=== PATIENT | male | born 2005 | race Caucasian/White ===

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

== ENCOUNTER 2023-07-26 13:19 | Emergency (ER) | payer BC, SELFPAY ==
[2023-07-26 13:50] VITALS: BP 142/98; PULSE 132; RESP 23; TEMP 36.7; O2SAT 93; BMI 36.6
[2023-07-26] MEDS: ALBUTEROL 0.083% 2.5 MG/3 ML NEB IH (14:03)
--- NOTE | 2023-07-26 14:24 | EXP.UTC ---
Discharge Plan Disposition Patient Disposition: Home, Self-Care Condition: Good Prescriptions Prescriptions: New prednisone 20 mg tablet 20 mg PO BID Qty: 10 0RF albuterol sulfate 90 mcg/actuation HFA aerosol inhaler 1 inh inhalation QID PRN (Reason: shortness of breath or wheezing) Qty: 6.7 0RF No Action ergocalciferol (vitamin D2) 1,250 mcg (50,000 unit) capsule 50,000 unit PO QWEEK 90 Days Qty: 12 0RF cholecalciferol (vitamin D3) 25 mcg (1,000 unit) capsule 1,000 unit PO DAILY Qty: 90 1RF azithromycin 250 mg tablet See Rx Instructions .ROUTE .COMPLEX Patient Comments: TAKE 2 TABLETS BY MOUTH ON DAY 1, AND THEN TAKE 1 TABLET BY MOUTH ONCE A DAY ON DAY 2 THROUGH DAY 5 Rx Instructions: TAKE 2 TABLETS BY MOUTH ON DAY 1, AND THEN TAKE 1 TABLET BY MOUTH ONCE A DAY ON DAY 2 THROUGH DAY 5 Referrals Follow up/Referrals: Gary Doshi MD [Primary Care Provider] - See instructions Activity Restrictions/Add. Instructions Additional Instructions/Restrictions: Tylenol and ibuprofen as needed for pain or fever Humidifier/vaporizer/hot steamy shower Follow-up with primary care tomorrow. Follow-up immediately in the ER of the [facility] for new or worsening symptoms or no noticeable improvement over the next 48-72 hours. Stop smoking Inhaler every 4-6 hours as needed. Should help open airways improved cough, wheezing, shortness of breath Start steroids today. Helps with inflammation therefore coughing and wheezing. Follow directions on package. Clinical Impressions Clinical Impression: Bronchitis Instructions Patient Instructions: Acute Bronchitis Discharge ED Provider: Norm ([facility] HPI General Stated complaint: soa congestion weakness Mode of Arrival: Ambulatory Source of Information: Patient Limitations: No Limitations Time Seen by Provider: 07/26/23 14:24 Description of Symptoms (Recalled from Triage Doc. by RN): Pt's symptoms are coughing, nausea, and SOB (93RA). He has an infection that doctor akil is currently treating. Pt has hx of asthma. HEENT Symptoms (Recalled from RN notes): No Resp Symptoms (Recalled from RN notes): Yes Skin Symptoms (Recalled from RN notes): No MS Symptoms (Recalled from RN notes): No Functional Status (Recalled from RN notes): n/a History of Present Illness Provider Complaint: 18 yr old male presents for c/o coughing, nausea, and SOB (93RA). He has an lung infection that doctor akil is currently treating. Pt has hx of asthma. Related Data Home Medications Medication Instructions Recorded Confirmed azithromycin 250 mg tablet See Rx Instructions .Route .COMPLEX 07/26/23 Previous Rx's Medication Instructions Recorded cholecalciferol (vitamin D3) 25 1,000 unit PO DAILY #90 caps 06/24/21 mcg (1,000 unit) capsule ergocalciferol (vitamin D2) 1,250 50,000 unit PO QWEEK 90 days #12 06/24/21 mcg (50,000 unit) capsule caps albuterol sulfate 90 mcg/actuation 1 inh inhalation QID PRN shortness 07/26/23 aerosol inhaler of breath or wheezing #6.7 grams prednisone 20 mg tablet 20 mg PO BID #10 tabs 07/26/23 Allergies Allergy/AdvReac Type Severity Reaction Status Date / Time INGREDIENT: NO KNOWN - NO Allergy Unknown Uncoded 07/26/23 13:59 KNOWN DRUG ALLERGY Worker's Comp Is this a Worker's Comp case?: No [facility] Disclaimer: The information contained in this section may have been updated after the patient was seen, as this information can be updated by other users. 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: Never smoker alcohol intake: never substance use type: denies use current occupational status: unemployed Travel in the last 8 weeks: None ROS Obtained: Yes All systems reviewed & no additional complaints except as documented Constitutional Constitutional: Reports system reviewed and no additional complaints, except as documented and Reports as per HPI Eyes Eyes: Reports system reviewed and no additional complaints, except as documented ENT Ears, Nose, Mouth, and Throat: Reports system reviewed and no additional complaints, except as documented Cardiovascular Cardiovascular: Reports system reviewed and no additional complaints, except as documented, Reports dyspnea and Reports dyspnea on exertion Respiratory Respiratory: Reports system reviewed and no additional complaints, except as documented, Reports as per HPI, Reports shortness of breath, Reports cough, Reports dyspnea, Reports dyspnea on exertion and Reports wheezing Gastrointestinal Gastrointestingal: Reports system reviewed and no additional complaints, except as documented Musculoskeletal Musculoskeletal: Reports system reviewed and no additional complaints, except as documented Integumentary/Breasts Skin/Breast: Reports system reviewed and no additional complaints, except as documented Neurologic Neurologic: Reports system reviewed and no additional complaints, except as documented Endocrine Endocrine: Reports system reviewed and no additional complaints, except as documented Hematologic/Lymphatic Henatologic/Lymphatic: Reports system reviewed and no additional complaints, except as documented Allergic/Immunologic Allergic/Immunologic: Reports system reviewed and no additional complaints, except as documented and Reports wheezing Physical Exam General General appearance: alert and in no apparent distress Head Head exam: atraumatic Eye Eye exam: Present normal appearance and PERRL ENT ENT exam: Present normal exam, normal oropharynx, mucous membranes moist and TM's normal bilaterally Respiratory Respiratory exam: Present wheezes Expanded Respiratory Exam Location: Left: wheezes (wheeze thoughout), Right: wheezes (wheeze thoughout), Upper: wheezes (wheeze thoughout) and Lower: wheezes (wheeze thoughout) Cardiovascular Cardiovascular exam: Present regular rate and normal rhythm Neurological Exam Neurological exam: Present alert and oriented X3 Skin Skin exam: Present warm and intact Medical Decision Making Medical Records Medical records reviewed: Yes I reviewed the patient's medical records. Alexander Inquiry Pt receiving controlled substance: No Alexander was queried for this patient: No Vital Signs: 07/26/23 13:50 Temperature 98.1 F Temperature Source Oral Pulse Rate [Right Radial] 132 H Respiratory Rate 23 Blood Pressure [Right Arm] 142/98 H Blood Pressure Mean [Right Arm] 112 Blood Pressure Source [Right Arm] Automatic Cuff Blood Pressure Position [Right Arm] Sitting 02 Sat by Pulse Oximetry 93 L Oxygen Delivery Method Room Air Orders (Tests/Meds): ED MEDICATIONS Generic Name Dose Route Start Last Admin Trade Name Freq PRN Reason Stop Dose Admin Albuterol Sulfate 2.5 mg 07/26/23 14:01 07/26/23 14:03 Albuterol 0.083% 2.5 Mg/3 Ml Neb IH 07/26/23 14:02 2.5 mg ONCE ONE Administration
[2023-07-26 15:12] VITALS: BP 142/98; PULSE 132; RESP 18; TEMP 36.7; O2SAT 98
== END 2023-07-26 15:00 | disposition home or self-care (01) ==
PROVIDERS: Emergency Provider Nurse Practitioner Family; PCP Family Medicine
DX: J20.9 Acute bronchitis, unspecified (principal); R06.02 Shortness of breath; R11.0 Nausea; R05.9 Cough, unspecified
CPT/HCPCS: 99204; 99212; G0463

== ENCOUNTER 2023-12-05 15:29 | Emergency (ER) | payer BC, SELFPAY ==
[2023-12-05 16:00] VITALS: BP 125/99; BP 154/86; PULSE 131; PULSE 132; RESP 15; RESP 26; TEMP 37; TEMP 37.2; O2SAT 92; O2SAT 93; BMI 32.9; BMI 33.0
--- NOTE | 2023-12-05 16:08 | XR_ITS ---
PROCEDURE INFORMATION: Exam: XR Chest Exam date and time: 12/05/2023 4:12 PM Age: 18 years old Clinical indication: Shortness of breath; Additional info: SOA, asthma, congestion TECHNIQUE: Imaging protocol: Radiologic exam of the chest. Views: 2 views. Total images: 4 COMPARISON: No relevant prior studies available. FINDINGS: Lungs: Bilateral hyperinflation is present. No focal pneumonia. Atelectatic changes noted within both lung bases. Pleural spaces: No pleural effusions. Heart/Mediastinum: The heart is not enlarged. Bones/joints: Unremarkable. IMPRESSION: 1. Bilateral hyperinflation is present. 2. No focal pneumonia. 3. Atelectatic changes noted within both lung bases.
--- NOTE | 2023-12-05 16:22 | ED_ITS ---
Discharge Plan Disposition Patient Disposition: Still a Patient Prescriptions Prescriptions: No Action albuterol sulfate 90 mcg/actuation HFA aerosol inhaler 1 inh inhalation QID PRN (Reason: shortness of breath or wheezing) Qty: 6.7 0RF Referrals Follow up/Referrals: Gary Doshi MD [Primary Care Provider] - See instructions Print Language Print Language: Kinyarwanda Discharge ED [facility]ai [facility] HPI General Stated complaint: SOA,congestion,loss of appitite Mode of Arrival: Ambulatory Source of Information: Patient Limitations: No Limitations Time Seen by Provider: 12/05/23 16:22 Description of Symptoms (Recalled from Triage Doc. by RN): PATIENT C/O EXCESSIVE MUCOUS BUILD-UP, SOA, AND LOSS OF APPTETIE X 3-4 DAYS HEENT Symptoms (Recalled from RN notes): No Resp Symptoms (Recalled from RN notes): Yes Skin Symptoms (Recalled from RN notes): No MS Symptoms (Recalled from RN notes): No Functional Status (Recalled from RN notes): WNL History of Present Illness Provider Complaint: 18-year-old male presents with complaints of shortness of air wheezing excessive mucus buildup and loss of appetite for 3 to 4 days. Patient states he used his albuterol prior to coming up here and it did not give any relief Related Data Previous Rx's ?Medication ?Instructions ?Recorded albuterol sulfate 90 mcg/actuation 1 inh inhalation QID PRN shortness 07/26/23 aerosol inhaler of breath or wheezing #6.7 grams Allergies Allergy/AdvReac Type Severity Reaction Status Date / Time No Known Allergies Allergy Unverified 09/11/23 09:45 Worker's Comp Is this a Worker's Comp case?: No [facility] Disclaimer: The information contained in this section may have been updated after the patient was seen, as this information can be updated by other users. 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) Smoking Status: Never smoker alcohol intake: never substance use type: denies use current occupational status: unemployed Travel in the last 8 weeks: None ROS Obtained: Yes Systems reviewed as appropriate & no additional complaints except as documented Physical Exam General General appearance: alert and in distress Head Head exam: atraumatic Eye Eye exam: Present normal appearance and PERRL ENT ENT exam: Present normal exam Respiratory Respiratory exam: Present wheezes Expanded Respiratory Exam Location: Left: wheezes, Right: wheezes, Upper: wheezes and Lower: wheezes Cardiovascular Cardiovascular exam: Present regular rate and normal rhythm Neurological Exam Neurological exam: Present alert and oriented X3 Skin Skin exam: Present warm and other (Diaphoretic) Medical Decision Making Medical Records Medical records reviewed: Yes I reviewed the patient's medical records. Alexander Inquiry Pt receiving controlled substance: No Alexander was queried for this patient: No Vital Signs: 12/05/23 16:00 Temperature 98.6 F Temperature Source Oral Pulse Rate [Left Brachial] 131 H Respiratory Rate 26 H Blood Pressure [Left Arm] 154/86 H Blood Pressure Mean [Left Arm] 108 Blood Pressure Source [Left Arm] Automatic Cuff Blood Pressure Position [Left Arm] Sitting 02 Sat by Pulse Oximetry 92 L Oxygen Delivery Method Room Air Orders (Tests/Meds): ORDERS Category Date Time Status Chest XR 2 view (NOT portable) [XR chest 2V] Stat Exams 12/05/23 16:08 Ordered Medical Decision Narrative: Patient went for an x-ray upon coming back went into see the patient he was diaphoretic and mouth breathing respiratory rate was 36. Called the ER given report to Minal GOSS will send to the ER for evaluation
--- NOTE | 2023-12-05 16:41 | PC.NURSE ---
PATIENT SENT TO ER PER Minda VIERA APRN FOR FURTHER EVALUATION. REPORT GIVEN TO OTIS (MIDLEVEL) BY Minda VIERA APRN. PATIENT TRANSPORTED TO ER VIA WHEELCHAIR WITH [facility] STAFF ASSIST AT THIS TIME
--- NOTE | 2023-12-05 16:44 | ECG_ITS ---
APPROVED REPORT Exam: Resting ECG HR:129 bpm ECG Measurements Heart Rate 129 AXES NE 161 P 85 QRSd 89 QRS 78 QT 302 T 63 QTc 378 Conclusion SINUS TACHYCARDIA ABNORMAL RHYTHM ECG UNCONFIRMED REPORT Electronically signed by : Marco Antonio Estrada, 12/05/2023 23:09:49
--- NOTE | 2023-12-05 16:56 | CT_ITS ---
PROCEDURE INFORMATION: Exam: CTA Chest With Contrast Exam date and time: 12/05/2023 5:30 PM Age: 18 years old Clinical indication: Dyspnea; Additional info: Dyspnea, tachycardia TECHNIQUE: Imaging protocol: Computed tomographic angiography of the chest with contrast. Exam focused on the arteries. 3D rendering (Not supervised by radiologist): MIP and/or 3D reconstructed images were created by the technologist. Total images: 986 Radiation optimization: All CT scans at this facility use at least one of these dose optimization techniques: automated exposure control; mA and/or kV adjustment per patient size (includes targeted exams where dose is matched to clinical indication); or iterative reconstruction. Contrast material: ISO 370; Contrast volume: 80 ml; Contrast route: INTRAVENOUS (IV); COMPARISON: CR XR CHEST 2V 12/05/2023 4:12 PM FINDINGS: Pulmonary arteries: Normal. No pulmonary emboli. Aorta: Unremarkable. No aortic aneurysm. No aortic dissection. Lungs: Diffuse patchy airspace opacities consistent with developing pneumonia present within the upper lobes bilaterally and lower lobes. 9 mm nodule present within the left lung base. Bilateral hyperinflation is present. Pleural spaces: Unremarkable. No pneumothorax. No pleural effusion. Heart: Unremarkable. No cardiomegaly. No pericardial effusion. Lymph nodes: Unremarkable. No enlarged lymph nodes. Bones/joints: Unremarkable. No acute fracture. Soft tissues: Unremarkable. IMPRESSION: 1. Diffuse patchy airspace opacities consistent with developing pneumonia present within the upper lobes bilaterally and lower lobes. 2. 9 mm nodule present within the left lung base. For both low risk and high risk patients, consider CT Chest at 3 months, PET/CT, or biopsy. (Reference: Cheo) 3. Bilateral hyperinflation is present. REFERENCES: Cheo Thurston et al. Guidelines for Management of Incidental Pulmonary Nodules Detected on CT Images: From the Fleischner Society 2017. Radiology. 2017;284(1):228-243.
[2023-12-05 17:00] VITALS: BP 140/95; PULSE 127; RESP 14; O2SAT 91
[2023-12-05] MEDS: 0.9 % SODIUM CHLORIDE 1000ML 1,000 ML 999 ML IV (17:08)
[2023-12-05] MEDS: METHYLPREDNISOLONE SOD SUCC 125MG VIAL 125 MG IV (17:08)
[2023-12-05] MEDS: ALBUTEROL 0.083% 2.5 MG/3 ML NEB IH ×3 (17:08→19:03)
[2023-12-05 17:09] LABS: Albumin Level 5.3 g/dl (3.5-5.0); Chloride 103 mmol/L (98-107); Sodium 137 mmol/L (136-145)
[2023-12-05 17:12] LABS: Alanine Aminotransferase 31 U/L (12-78); Albumin/Globulin Ratio 1.2 (1.1-1.8); Alkaline Phosphatase 106 U/L (38-126); Aspartate Amino Transferase 55 U/L (17-59); Bilirubin,Total 2.2 mg/dl (0.2-1.3); Blood Urea Nitrogen 10 mg/dl (9-20); Carbon Dioxide 20 mmol/L (22.0-30.0); Creatinine Clearance Estimated 226 mL/min (50-200); Estimated Glomerular Filt Rate 95 ml/min (>60); GFR (African American) 115 ML/MIN (>60); Globulin 4.5 g/dL (1.3-3.2); Total Protein,Serum 9.8 g/dl (6.3-8.2)
[2023-12-05 17:13] LABS: Calcium 9.4 mg/dl (8.4-10.2); Glucose 112 mg/dl (74-100)
[2023-12-05 17:21] LABS: Basophils # 0.1 K/mm3 (0-0.2); Basophils % 0.6 % (0.1-2.0); Eosinophils # 0.2 K/mm3 (0.0-0.4); Eosinophils % 1.3 % (0.1-12.0); Hematocrit 47.2 % (42.0-52.0); Lymphocytes # 2.5 K/mm3 (0.7-4.5); Lymphocytes % 18.1 % (10-50); Mean Corpuscular HGB Conc 31.9 g/dL (31.8-35.4); Mean Corpuscular Hemoglobin 27.5 pg (27.0-31.2); Mean Corpuscular Volume 86.4 fl (80-94); Mean Platelet Volume 7.4 fl (7.4-10.4); Monocytes # 1.3 K/mm3 (0.1-1.0); Monocytes % 9.2 % (1.7-9.3); Neutrophils # 9.7 K/mm3 (1.8-7.8); Neutrophils % 70.7 % (37.0-80.0); Platelet Count 398 K/mm3 (142-424); Red Blood Count 5.47 M/mm3 (4.60-6.20); White Blood Count 13.8 K/mm3 (4.5-13.0)
--- NOTE | 2023-12-05 17:36 | ED_ITS ---
<Statement entered by Val Estrada MD - 12/05/23 22:29> I was consulted by the FADI, and we discussed the complexity of the problems being addressed. I approved the treatment and management plan for this patient's care in the emergency department, thus performing a substantive portion of the medical decision making. Val Estrada MD, CATHY, FACEP Discharge Plan Disposition Patient Disposition: Left Against Medical Advice Prescriptions Prescriptions: New cefdinir 300 mg capsule 300 mg PO Q12H 10 Days Qty: 20 0RF azithromycin [Zithromax] 250 mg tablet 250 mg PO DAILY 4 Days Qty: 4 0RF Rx Instructions: start on day 2 of therapy prednisone 20 mg tablet 60 mg PO DAILY 5 Days Qty: 15 0RF albuterol sulfate 2.5 mg /3 mL (0.083 %) solution for nebulization 2.5 mg inhalation Q6H PRN (Reason: bronchospasm) Qty: 75 0RF (DME) nebulizer and compressor Device See Rx Instructions .Route Qty: 1 0RF Rx Instructions: As directed No Action albuterol sulfate 90 mcg/actuation HFA aerosol inhaler 1 inh inhalation QID PRN (Reason: shortness of breath or wheezing) Qty: 6.7 0RF Referrals Follow up/Referrals: Gary Doshi MD [Primary Care Provider] - See instructions Activity Restrictions/Add. Instructions Additional Instructions/Restrictions: You were seen with pneumonia, sepsis, hypoxia.It is recommended that you stay in the hospital for treatment. Since you have refused I will discharge you with antibiotics, steroids and albuterol. Please return for admission if you are not improving or have worsening symptoms. Clinical Impressions Clinical Impression: Pneumonia Instructions Patient Instructions: Pneumonia-Adult Print Language Print Language: Belarusian Discharge ED Provider: Val Estrada General Adult HPI General Chief complaint: Shortness of Breath/Dyspnea Stated complaint: SOA,congestion,loss of appitite Time Seen by Provider: 12/05/23 16:49 Mode of Arrival: Ambulatory Source of Information: Patient Limitations: No Limitations Description of Symptoms (Recalled from ER Triage Doc. by RN): PATIENT C/O EXCESSIVE MUCOUS BUILD-UP, SOA, AND LOSS OF APPTETIE X 3-4 DAYS History of Present Illness HPI narrative: Patient presents with 2 to 3 days of dyspnea on exertion. He has had 1 week of cough and congestion prior to this. He denies any fevers. He denies any sick contacts. He does have a history of asthma in childhood, however has not had any recent issues. He did use an albuterol inhaler without any improvement. MD complaint: Dyspnea Related Data Previous Rx's ?Medication ?Instructions ?Recorded albuterol sulfate 90 mcg/actuation 1 inh inhalation QID PRN shortness 07/26/23 aerosol inhaler of breath or wheezing #6.7 grams albuterol sulfate 2.5 mg/3 mL 2.5 mg (3 mL) inhalation Q6H PRN 12/05/23 (0.083 %) solution for nebulization bronchospasm #75 mL azithromycin 250 mg tablet 250 mg PO DAILY 4 days #4 tabs 12/05/23 (Zithromax) cefdinir 300 mg capsule 300 mg PO Q12H 10 days #20 caps 12/05/23 nebulizer and compressor #1 ea 12/05/23 prednisone 20 mg tablet 60 mg (3 x 20 mg) PO DAILY 5 days 12/05/23 #15 tabs Allergies Allergy/AdvReac Type Severity Reaction Status Date / Time No Known Allergies Allergy Unverified 09/11/23 09:45 [facility] Disclaimer: The information contained in this section may have been updated after the patient was seen, as this information can be updated by other users. 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) Smoking Status: Never smoker alcohol intake: never substance use type: denies use current occupational status: unemployed Travel in the last 8 weeks: None ROS Obtained: Yes Systems reviewed as appropriate & no additional complaints except as documented Physical Exam General General appearance: alert and in distress Head Head exam: atraumatic and normocephalic Eye Eye exam: Present normal appearance and EOMI Chest Chest inspection: Present symmetric chest wall rise Respiratory Respiratory exam: Present wheezes and other (Breath sounds diminished bilaterally, rhonchi); Absent stridor Cardiovascular Cardiovascular exam: Present regular rate, normal rhythm and tachycardia; Absent systolic murmur Extremities Exam Extremities exam: Present full ROM Neurological Exam Neurological exam: Present alert and oriented X3 Psychiatric Psychiatric exam: Present normal affect and normal mood Skin Skin exam: Present warm, dry and intact Medical Decision Making Alexander Inquiry Pt receiving controlled substance: No Vital Signs: 12/05/23 16:00 12/05/23 16:00 12/05/23 17:00 Temperature 98.6 F 98.9 F Temperature Source Oral Oral Pulse Rate 127 H Pulse Rate [Left Brachial] 131 H 132 H Respiratory Rate 26 H 15 14 Blood Pressure 140/95 H Blood Pressure [Left Arm] 154/86 H 125/99 H Blood Pressure Mean [Left Arm] 108 107 Blood Pressure Source Blood Pressure Source [Left Arm] Automatic Cuff Blood Pressure Position Blood Pressure Position [Left Arm] Sitting 02 Sat by Pulse Oximetry 92 L 93 L 91 L Oxygen Delivery Method Room Air Room Air Nasal Cannula Oxygen Flow Rate (LPM) 12/05/23 18:01 12/05/23 18:30 12/05/23 18:42 Temperature Temperature Source Pulse Rate 119 H 109 H 113 H Pulse Rate [Left Brachial] Respiratory Rate 13 14 15 Blood Pressure 129/92 H 132/105 H 121/88 Blood Pressure [Left Arm] Blood Pressure Mean [Left Arm] Blood Pressure Source Blood Pressure Source [Left Arm] Blood Pressure Position Blood Pressure Position [Left Arm] 02 Sat by Pulse Oximetry 94 L 96 95 Oxygen Delivery Method Nasal Cannula Nasal Cannula Oxygen Flow Rate (LPM) 2 12/05/23 20:04 Temperature 98.2 F Temperature Source Oral Pulse Rate 78 Pulse Rate [Left Brachial] Respiratory Rate 19 Blood Pressure 135/80 Blood Pressure [Left Arm] Blood Pressure Mean [Left Arm] Blood Pressure Source Automatic Cuff Blood Pressure Source [Left Arm] Blood Pressure Position Sitting Blood Pressure Position [Left Arm] 02 Sat by Pulse Oximetry Oxygen Delivery Method Room Air Oxygen Flow Rate (LPM) Lab Data Lab Results 12/05/23 16:48: WBC 13.8 H, RBC 5.47, Hgb 15.0, Hct 47.2, MCV 86.4, MCH 27.5, MCHC 31.9, RDW 14.0, Plt Count 398, MPV 7.4, Neut % (Auto) 70.7, Lymph % (Auto) 18.1, [place] % (Auto) 9.2, Eos % (Auto) 1.3, Baso % (Auto) 0.6, Neut # (Auto) 9.7 H, Lymph # (Auto) 2.5, [place] # (Auto) 1.3 H, Eos # (Auto) 0.2, Baso # (Auto) 0.1, Sodium 137, Potassium 5.0, Chloride 103, Carbon Dioxide 20 L, Anion Gap 19.0 H, BUN 10, Creatinine 1.00, Estimated Creat Clear 226, Estimated GFR 95, Est GFR ( Amer) 115, Glucose 112 H, Calcium 9.4, Total Bilirubin 2.2 H, AST 55, ALT 31, Alkaline Phosphatase 106, Total Protein 9.8 H D, Albumin 5.3 H, Globulin 4.5 H, Albumin/Globulin Ratio 1.2, Chlamy pneumoniae PCR Not detected, Adenovirus (PCR) Not detected, B. pertussis DNA (PCR) Not detected, Coronavirus OC43 (PCR) Not detected, Coronavirus HKU1 (PCR) Not detected, Coronavirus 229E (PCR) Not detected, SARS-CoV-2 (PCR) Not detected, Coronavirus NL63 (PCR) Not detected, Human Metapneumovir PCR Not detected, Influenza A (H1) PCR Not detected, Influ A (H1N1/09) PCR Not detected, Influenza A (H3) PCR Not detected, Influenza Type A (PCR) Not detected, Influenza Type B (PCR) Not detected, M. pneumoniae (PCR) Not detected, Parainfluenza 1 (PCR) Not detected, Parainfluenza 2 (PCR) Not detected, Parainfluenza 3 (PCR) Not detected, Parainfluenza 4 (PCR) Not detected, RSV (PCR) Not detected, Entero/Rhino (PCR) Not detected 12/05/23 16:48 12/05/23 16:48 Orders (Tests/Meds): ED MEDICATIONS Discontinued Medications Generic Name Dose Route Start Last Admin Trade Name Freq PRN Reason Stop Dose Admin Albuterol Sulfate 2.5 mg 12/05/23 16:54 12/05/23 17:08 Albuterol 0.083% 2.5 Mg/3 Ml Formerly [facility] 12/05/23 16:55 2.5 mg ONCE ONE Administration Albuterol Sulfate 2.5 mg 12/05/23 18:06 12/05/23 18:24 Albuterol 0.083% 2.5 Mg/3 Ml Formerly [facility] 12/05/23 18:07 2.5 mg ONCE ONE Administration Albuterol Sulfate 2.5 mg 12/05/23 18:55 12/05/23 19:03 Albuterol 0.083% 2.5 Mg/3 Ml Neb IH 12/05/23 18:56 2.5 mg ONCE ONE Administration Sodium Chloride 1,000 mls @ 999 mls/hr 12/05/23 16:56 12/05/23 17:08 Sod Chlor 0.9% 1000ml Bag IV 12/05/23 17:56 999 mls/hr .Q1H1M ONE Administration Azithromycin 500 mg/ Sodium 250 mls @ 250 mls/hr 12/05/23 18:02 12/05/23 18:38 Chloride IV 12/05/23 18:03 250 mls/hr Q24H ONE Administration Ceftriaxone Sodium 1 gm/ 50 mls @ 100 mls/hr 12/05/23 18:02 12/05/23 18:23 Sodium Chloride IV 12/05/23 18:31 100 mls/hr ONCE ONE Administration Iopamidol 80 ml 12/05/23 17:36 12/05/23 17:37 Iopamidol-370 (76%);100ml Bottle IV 12/05/23 17:37 80 ml ONCE ONE Administration Methylprednisolone Sodium Succinate 125 mg 12/05/23 16:54 12/05/23 17:08 Methylprednisolone Sod Succ 125mg Vial IV 12/05/23 16:55 125 mg ONCE ONE Administration Sodium Chloride 10 ml 12/05/23 17:36 12/05/23 17:37 Sodium Chloride 0.9% 10ml Syr (Rad Only) IV 12/05/23 17:37 10 ml ONCE ONE Administration Sodium Chloride 50 ml 12/05/23 17:36 12/05/23 17:37 0.9 % Sodium Chloride 50 Ml Vial IV 12/05/23 17:37 50 ml ONCE ONE Administration ORDERS Category Date Time Status CTA Chest [CT angio chest PE protocol] Stat Cat Scan 12/05/23 16:56 Completed Chest XR 2 view (NOT portable) [XR chest 2V] Stat Exams 12/05/23 16:08 Completed CBC w/Auto Diff [Complete Blood Count Auto Diff] Stat Lab 12/05/23 16:48 Completed CMP [Comprehensive Metabolic Panel] Stat Lab 12/05/23 16:48 Completed Full Resp Panel w/COVID ([facility]) Routine Lab 12/05/23 16:48 Completed Blood Culture Stat Micro 12/05/23 18:16 Received Medical Decision Narrative: In summary patient is a 18-year-old male who presents the emergency department for evaluation of dyspnea. Patient is tachycardic and O2 92% upon arrival, afebrile. He has diminished breath sounds, wheezing, rhonchi on exam. Differential diagnosis includes pneumonia, asthma exacerbation, bronchitis, pulmonary embolism. Initial workup will be conducted with labs, chest x-ray, CTA. Initial inventions include albuterol, Solu-Medrol, IV fluids. Initial workup reviewed by me reveal leukocytosis, pneumonia, nodule, negative respiratory panel. Upon repeat evaluation improved breath sounds, oxygen 95% on room air. Given this it was recommended that the patient be admitted. He refuses at this time. Given Rocephin and Zithromax in the emergency department. Patient signed out AMA and will be given prescriptions for, cefdinir, Zithromax, prednisone and albuterol. I did instruct the patient to discuss pulmonary nodule and further workup with his PCP. This was not on d/c paperwork, however I did call the patient after discharge to remind him and express the importance of more workup. He is agreeable. Critical Care Critical Care Time Critical Care Time: No
[2023-12-05] MEDS: 0.9 % SODIUM CHLORIDE 50 ML VIAL IV (17:37)
[2023-12-05] MEDS: IOPAMIDOL-370 (76%);100ML BOTTLE 80 ML IV (17:37)
[2023-12-05] MEDS: SODIUM CHLORIDE 0.9% 10ML SYR (RAD ONLY) 10 ML IV (17:37)
[2023-12-05 18:01] VITALS: BP 129/92; PULSE 119; RESP 13; O2SAT 94
[2023-12-05 18:18] LABS: Adenovirus,PCR Not Detected (NotDetected); Bordetella Pertussis Not Detected (NotDetected); Chlamydophila Pneumoniae, PCR Not Detected (NotDetected); Coronavirus 19, PCR Not Detected (NotDetected); Coronavirus 229E Not Detected (NotDetected); Coronavirus NL63 Not Detected (NotDetected); Coronavirus OC43 Not Detected (NotDetected); Coronovirus HKU1,PCR Not Detected (NotDetected); Human Metapneumovirus Not Detected (NotDetected); Influenza A, PCR Not Detected (NotDetected); Influenza AH1, 2009 Not Detected (NotDetected); Influenza AH1, PCR Not Detected (NotDetected); Influenza AH3,PCR Not Detected (NotDetected); Influenza B, PCR Not Detected (NotDetected); Mycoplasma Pneumoniae, PCR Not Detected (NotDetected); Parainfluenza 1, PCR Not Detected (NotDetected); Parainfluenza 2, PCR Not Detected (NotDetected); Parainfluenza 3, PCR Not Detected (NotDetected); Parainfluenza 4, PCR Not Detected (NotDetected); Respiratory Syncytial Virus Not Detected (NotDetected); Rhinovirus/Enterovirus Not Detected (NotDetected)
[2023-12-05] MEDS: CEFTRIAXONE SODIUM 1 GM in 0.9 % SODIUM CHLORIDE 50 ML IV (18:23)
[2023-12-05 18:30] VITALS: BP 132/105; PULSE 109; RESP 14; O2SAT 96
[2023-12-05] MEDS: AZITHROMYCIN 500 MG in 0.9 % SODIUM CHLORIDE 250 ML 250 MG IV (18:38)
[2023-12-05 18:42] VITALS: BP 121/88; PULSE 113; RESP 15; O2SAT 95
--- NOTE | 2023-12-05 19:49 | PC.NURSE ---
rounded on pt. family at bedside. no needs voiced. call light in reach
[2023-12-05 20:04] VITALS: BP 135/80; PULSE 78; RESP 19; TEMP 36.8; O2SAT 98
== END 2023-12-05 20:09 | disposition left against medical advice (07) ==
LOC: UTC 16:39 → ER 16:39
PROVIDERS: Physician Assistant; Emergency Provider Student in an Organized Health Care Education/Training Program; PCP Family Medicine
DX: J18.9 Pneumonia, unspecified organism (principal); R06.02 Shortness of breath; R06.2 Wheezing
CPT/HCPCS: 71046; 71275; 80053; 85025; 87040; 87265; 87486; 87581; 87632; 87635; 93005; 96361; 96365; 96375; 99285; J0456; J0696; J2919; J7030; J7050; J7613; Q9967

== ENCOUNTER 2024-11-18 10:31 | Outpatient (CLI) | payer BC, SELFPAY ==
--- OUTSIDE RECORDS SUMMARY | 2023-07-24 10:15 | XMS_ITS ---
Author Organization Juliann Address 12[address] [facility] 36 [facility] [address] [place], [place] [address]FIDEL [id number] Care Team Providers Care Staging Technician Name Role Phone Val Nicholson Primary Care Provider Gary Doshi Unavailable [phone] Allergies No Known Allergies Results Component Value Reference Range Notes CBC Fingerstick (in house) Reviewed date:07/24/2023 03:30:07 PM Interpretation: Performing Lab: Notes/Report: wbc 11.5 3.5 - 10 lym 22.5 15 - 50 mid 7.8 2 - 15 gran 69.7 35 - 80 rbc 6.10 3.5 - 5.5 hgb 16.8 11.5 - 16.5 hct 51.5 35 - 55 mcv 84.5 75 - 100 mch 27.6 25 - 35 mchc 32.7 31 - 38 plat 425 100 - 400 REASON FOR VISIT wheezing in lungs Medications Medication SIG (Take, Route, Fr equency, Duration) Notes Start Date End Date Status Zithromax Z-Alli 250 MG as directed Orall y once daily; Duration: 5 day(s) 07/24/2023 Active Ondansetron HCl 4 MG 1 tablet Orally shyla ry 8 hours as needed 07/24/2023 Active Multivitamin - 1 tablet Orally Once a day; Duration: 30 day(s) Active Vital Signs Blood pressure systolic 132 mm Hg 07/24/19 24 Blood pressure diastolic 84 mm Hg 024 Heart Rate 130 /min 07/24/2023 Height 80 in 07/24/2023 Weight 334.2 lbs 07/24/2023 BMI 36.71 kg/m2 07/24/2023 Encounters Encounter Location Date Provider Diagnosis [facility] [address] [facility] [address] F[place] Khan [id number] 07/24/2023 Gary Doshi URI, acute J06.9 and Acute vomiting R11.10 Assessments Encounter Date Diagnosis (ICD Code) Assessment Notes Treatment Notes Treatment Clinical Notes Section Notes 07/24/2023 URI, acute (ICD-10 - J06.9) 07/24/2023 Acute vomiting (ICD-10 - R11.10) Plan Of Treatment Medication Medication Name Sig Start Date Stop Date Notes Zithromax Z-Alli 250 MG as directed Orall y once daily; Duration: 5 day(s) 07/24/2023 Ondansetron HCl 4 MG 1 tablet Orally shyla ry 8 hours as needed 07/24/2023 Next Appt Details Follow Up: via phone to repo rt progress, Reason: Progress Notes * Janeth RENDONOB:2005 ( 19 yo M)Acc No.[id number]:07/24/2023 Progress Notes Patient: Ezequiel MATHEW Provider: Regan Doshi M.D. :2005 A ge:18 Y S ex:Male Date:07/24/2023 Address:[facility] [address] [facility] Pcp:Val Nicholson Subjective: * Chief Complaints: * 1 . Wheezing in lungs. * HPI: G astroenterology: 18 year old male presents with c/o Vomiting P t complains of vomiting since Thursday. States he has had decreased appetite so he has been drinking Ensure. Pt states he is hungry but food sounds disgusting . E NT/respiratory: c/o cough P t complains of greenish yellow sputum production cough since Thursday. States he feels short of breath after small activity. Pt states he did have asthma as a child and feels like he is wheezing. * ROS: D ERMATOLOGY: no R emily. n o H colin. G ASTROENTEROLOGY: no N ausea. n o V omiting. U ROLOGY: no D ifficulty urinating. n o B lood in urine. * 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: M edical History Verified. * Surgical History: E ar Tubes 1999. * Hospitalization/Major Diagno stic Procedure: D enies Past Hospitalization. * Family History: F ather: alive. M other: alive. P aternal Grand Father: alive. P aternal Grand Mother: alive. M aternal Grand Father: . M aternal Grand Mother: alive. 1 sister(s) - healthy. . * 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: C affeine: no. Exercise: yes. Marital Status: Single. * Medications: T aking Multivitamin - Tablet 1 tablet Orally Once a day , Medication List reviewed and reconciled with the patient * Allergies: N .K.D.A. Objective: * Vitals: W t:334.2, Temp:98.4, BP:132/84, HR:130, O2 Sat:95% on RA, Nurse:eileen, Ht: 80, BMI:36.71. * Examination: E NT/Respiratory: General Appearance: N AD. E yes: P ERRLA, sclera clear. O ral cavity : erythema without exudate on pharynx. N josr : n o cervical lymphadenopathy. H eart : R RR, normal S1 S2. L ungs: good air movement, coarse breath sounds due to upper airway congestion. Assessment: * Assessment: 1. U RI, acute - J06.9 (Primary) 2 . A cute vomiting - R11.10 ? Plan: * Treatment: Value Reference Range w bc 11.5 3.5 - 10 * l ym 22.5 15 - 50 * m id 7.8 2 - 15 * g ran 69.7 35 - 80 * r bc 6.10 3.5 - 5.5 * h gb 16.8 11.5 - 16.5 * h ct 51.5 35 - 55 * m cv 84.5 75 - 100 * m ch 27.6 25 - 35 * m chc 32.7 31 - 38 * p lat 425 100 - 400 * Nikki Raymond 07/24/2023 3:05:39 PM > , Provider reviewed results while patient in office. 2.?Acute vomiting? Start Ondansetron HCl Tablet, 4 MG, 1 tablet, Orally, every 8 hours as needed, 12, Refills 0.? * Procedure Codes: 9 [address] [place], [address] CAPILLARY BLOOD DRAW, 13085 CBC WITH AUTO DIFF * Follow Up: v ia phone to report progress * Images: Billing Information: * Visit Code: 24377 Office Visit, New Pt., Level 3. * Procedure Codes: [address] [place]. [address] CAPILLARY BLOOD DRAW. 26817 CBC WITH AUTO DIFF. * Electronic signature of Shanae Doshi MD on 11/21/2024 at 10:33 AM EDT Sign off status: Pending * Provider: Regan Doshi M.D. Date: 0 07/24/2023 Generated for Kishor irby/Aubrey/eTransmitting on: 0 11/21/2024 10:33 AM EDT History and Physical Notes * HPI (History of Present Illness) Category Sub-Category Detail Notes Category Not es ENT/respiratory cough Pt complains of greenish yellow sputum production cough since Thursday. States he feels short of breath after small activity. Pt states he did have asthma as a child and feels like he is wheezing Gastroenterology Vomiting Pt complains of vomiting since Thursday. States he has had decreased appetite so he has been drinking Ensure. Pt states he is hungry but food sounds disgusting Examination Category Sub-Category Detail Notes Category Not es ENT/Respiratory Oral cavity : erythema without exudate on pharynx Neck : no cervical lymphade nopathy Heart : RRR, normal S1 S2 Lungs: good air movement, c oarse breath sounds due to upper airway congestion General Appearance: NAD Eyes: PERRLA, sclera clear
--- OUTSIDE RECORDS SUMMARY | 2023-07-27 11:15 | XMS_ITS ---
Author Organization Nahid Address 1210 [facility] [address] [place] [id number] Care Team Providers Care Wire Fence Builder Name Role Phone Val Nicholson Primary Care Provider [phone] Gary Doshi [phone] Allergies No Known Allergies REASON FOR VISIT follow up [facility] Encounters Encounter Location Date Provider Diagnosis Juliann [address] [place] [address] [place] Khan [phone] 07/27/2023 Gary Doshi Plan Of Treatment No Information Progress Notes * Janeth RENDONOB:2005 ( 19 yo M)Acc No.[id number]:07/27/2023 Progress Notes Patient: Ezequiel MATHEW Provider: Regan Doshi M.D. :2005 A ge:18 Y S ex:Male Date:07/27/2023 Address:[address] , [place] [id number] Pcp:Val Nicholson Subjective: * Chief Complaints: * 1 . follow up [facility]. * ROS: D ERMATOLOGY: no R emily. [...] no. Exercise: yes. Marital Status: Single. * Allergies: N .K.D.A. Objective: * Vitals: Assessment: Plan: * Treatment: * Images: Billing Information: * Visit Code: * Procedure Codes: * Electronic signature of Shanae Doshi MD on 11/21/2024 at 10:33 AM EDT Sign off status: Pending * Provider: Regan Doshi M.D. Date: 0 07/27/2023 Generated for Kishor irby/Aubrey/Angela on: 0 11/21/2024 10:33 AM EDT
--- OUTSIDE RECORDS SUMMARY | 2024-05-10 05:45 | XMS_ITS ---
Author Organization [facility] Address [address] [facility] [address] [place] [id number] Care Team Providers Care Nylon Mender Name Role Phone Val Nicholson Primary Care Provider [phone] Gary Doshi Unavailable [phone] Perri Orr Unavailable [phone] Allergies No Known Allergies Results Component Value Reference Range Notes CBC Fingerstick (in house) Reviewed date:05/10/2024 07:36:27 PM Interpretation: Performing Lab: Notes/Report: wbc 14.8 3.5 - 10 lym 18.7 15 - 50 mid 5.1 2 - 15 gran 76.2 35 - 80 rbc 5.93 3.5 - 5.5 hgb 16.6 11.5 - 16.5 hct 48.9 35 - 55 mcv 82.5 75 - 100 mch 28.1 25 - 35 mchc 34.0 31 - 38 plat 252 100 - 400 REASON FOR VISIT asthma issues Medications Medication SIG (Take, Route, Frequency, Duration) Notes Start Date End Date Status Ondansetron HCl 4 MG 1 tablet Orally shyla ry 8 hours as needed 07/24/2023 Active Multivitamin - 1 tablet Orally Once a day; Duration: 30 day(s) Active Cefuroxime Axetil 500 MG 1 tablet Orally every 12 hrs; Duration: 7 day(s) 05/10/2024 Active Medrol 4 MG as directed orally d aily; Duration: 6 days 05/10/2024 Active Albuterol Sulfate HFA 108 (90 Base) MCG/ACT 2 puffs qid and q4h prn Inhalation qid and prn 05/10/2024 Active Vital Signs Blood pressure systolic 132 mm Hg 05/10/19 25 Blood pressure diastolic 80 mm Hg 025 Heart Rate 137 /min 05/10/2024 Height 80 in 05/10/2024 Weight 343.2 lbs 05/10/2024 BMI 37.70 kg/m2 05/10/2024 Encounters Encounter Location Date Provider Diagnosis [facility] [address] [place] [id number] 05/10/2024 Perri Orr Bronchitis J4 0 Assessments Encounter Date Diagnosis (ICD Code) Assessment Notes Treatment Notes Treatment Clinical Notes Section Notes 05/10/2024 Bronchitis (ICD-10 - J40) stressed the use of inhaler qid until cough much improved, fluids, rest, supportive measures for fever/symptom relief Plan Of Treatment Medication Medication Name Sig Start Date Stop Date Notes Cefuroxime Axetil 500 MG 1 tablet Orally every 12 hrs; Duration: 7 day(s) 05/10/2024 Medrol 4 MG as directed orally d aily; Duration: 6 days 05/10/2024 Albuterol Sulfate HFA 108 (9 0 Base) MCG/ACT 2 puffs qid and q4h prn Inhalation qid and prn 05/10/2024 Treatment Notes Assessment Notes Bronchitis stressed the use of inhaler qid until cough much improved, fluids, rest, supportive measures for fever/symptom relief Next Appt Details Follow Up: prn, Reason: Progress Notes * Janeth RENDONOB:2005 ( 19 yo M)Acc No.[id number]:05/10/2024 Progress Notes Patient: Ezequiel MATHEW Provider: MAYRA Jj :2005 A ge:18 Y S ex:Male Date:05/10/2024 Address:[facility] [place] [facility] Pcp:Val Nicholson Subjective: * Chief Complaints: * 1 . Asthma issues. * HPI: H PI: 18 year old male presents with c/o Patient is here today for?Pt is here today for c/o asthma issues. Pt sts he would like an emergency inhaler and would like more refills for it as well so if he needs it he can go and get one. E NT/respiratory: c/o cough. c/o nasal congestion. c/o rhinorrhea.? c/o post nasal drainage. c/o Short of Breath. c/o chest congestion. Denies : sore throat. D enies : Fever. D enies : Chest Pain. D enies : smoking. eating and drinking OK. 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 * ROS: D ERMATOLOGY: no R emily. n o H colin. G ASTROENTEROLOGY: no N ausea. n o V omiting. U ROLOGY: no D ifficulty urinating. n o B lood in urine. * 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: M edical History Verified. * Surgical History: E ar Tubes 1999. * Family History: F ather: alive. M other: alive. P aternal Grand Father: alive. P aternal Grand Mother: alive. M aternal Grand Father: . M aternal Grand Mother: alive. 1 sister(s) - healthy. . * 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: C affeine: no. Exercise: yes. Marital Status: Single. * Medications: T aking Multivitamin - Tablet 1 tablet Orally Once a day , Taking Ondansetron HCl 4 MG Tablet 1 tablet Orally every 8 hours as needed , Medication List reviewed and reconciled with the patient * Allergies: N .K.D.A. Objective: * Vitals: W t:343.2, Temp:97.9, BP:132/80, HR:137, O2 Sat:92% on RA, Nurse:[facility], Ht: 80, BMI:37.70. * Examination: E NT/Respiratory: General Appearance: well nourished and hydrated, NAD, alert. E yes: sclera and conjunctiva clear. E ars: auditory canals normal bilaterally; cerumen left ear and unable to visulize TM ; right TM normal. N ose : congested. S inuses : non tender bilaterally. O ral cavity : no erythema or exudate seen on pharynx. H eart : RRR. L ungs: inspiratory and expirtory wheeze throughout; diminished BS posteriorly. Assessment: * Assessment: 1. B ronchitis - J40 (Primary) S pecify :versus pneumonia Plan: * Treatment: * Labs: * L ab: CBC Fingerstick (in house) (Collection Date & Time - 05/10/2024) Value Reference Range w bc 14.8 3.5 - 10 * l ym 18.7 15 - 50 * m id 5.1 2 - 15 * g ran 76.2 35 - 80 * r bc 5.93 3.5 - 5.5 * h gb 16.6 11.5 - 16.5 * h ct 48.9 35 - 55 * m cv 82.5 75 - 100 * m ch 28.1 25 - 35 * m chc 34.0 31 - 38 * p lat 252 100 - 400 * Kate Self 05/10/2024 10:22 :38 AM > Provider reviewed results while patient in office.Perri Orr 05/10/2024 7:36:27 PM > * Procedure Codes: 9 47[address] [place], [address] CAPILLARY BLOOD DRAW, 12622 CBC WITH AUTO DIFF * Follow Up: p rn * Images: Billing Information: * Visit Code: 88343 Office Visit, Est Pt., Level 3. * Procedure Codes: [address] [place]. [address] CAPILLARY BLOOD DRAW. 05001 CBC WITH AUTO DIFF. * Electronic signature of Roxanna Orr APRN on 11/21/2024 at 10:32 AM EDT Sign off status: Pending * Provider: MAYRA Jj Date: 0 05/10/2024 Generated for Kishor irby/Aubrey/Angela on: 0 11/21/2024 10:32 AM EDT History and Physical Notes * HPI (History of Present Illness) Category Sub-Category Detail Notes Category Not es ENT/respiratory sore throat eating and drinking OK. 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 Pt sts he would like an emergency inhaler and would like more refills for it as well so if he needs it he can go and get one Examination Category Sub-Category Detail Notes Category Not es ENT/Respiratory Oral cavity : no erythema or exudate s een on pharynx Sinuses : non tender bilateral ly Ears: auditory canals norm al bilaterally; cerumen left ear and unable to visulize TM ; right TM normal Heart : RRR Lungs: inspiratory and expi rtory wheeze throughout; diminished BS posteriorly General Appearance: well nourished and h ydrated, NAD, alert Nose : congested Eyes: sclera and conjuncti va clear
--- OUTSIDE RECORDS SUMMARY | 2024-05-24 05:30 | XMS_ITS ---
Author Organization [facility] Address [address] [place] [address] [place] [id number] Care Team Providers Care Senior Writer Name Role Phone Val Nicholson Primary Care Provider Gary Doshi Unavailable [phone] Perri Orr Unavailable [phone] Allergies No Known Allergies REASON FOR VISIT 2 week f/u Encounters Encounter Location Date Provider Diagnosis [facility] [address] [place] [address] [place] [id number] 05/24/2024 Perri Orr Plan Of Treatment No Information Progress Notes * Janeth RENDONOB:2005 ( 19 yo M)Acc No.[id number]:05/24/2024 Patient: Ezequiel MATHEW Provider: MAYRA Jj :2005 A ge:19 Y S ex:Male Date:05/24/2024 Address:[address] , [place] [id number] Pcp:Val Nicholson Subjective: * Chief Complaints: * 1 . 2 week f/u. * HPI: A llergy/Asthma: 19 year old male presents with c/o Asthma P t presents today for a 2 week follow up on asthma and bronchitis. Pt sts . * ROS: D ERMATOLOGY: no R emily. [...] * Procedure Codes: * Electronic signature of Roxanna Orr APRN on 11/21/2024 at 10:33 AM EDT Sign off status: Pending * Provider: MAYRA Jj Date: 0 05/24/2024 Generated for Kishor Leung/Angela on: 0 11/21/2024 10:33 AM EDT History and Physical Notes * HPI (History of Present Illness) Category Sub-Category Detail Notes Category Not es Allergy/Asthma Asthma Pt [facility] week follow up on asthma and bronchitis. Pt sts
[2024-11-18 21:01] LABS: Coronavirus 19, PCR Not Detected (NotDetected); Influenza A, PCR Not Detected (NotDetected); Influenza B, PCR Not Detected (NotDetected)
--- OUTSIDE RECORDS SUMMARY | 2024-11-21 10:33 | XMS_ITS | Patient Health Record ---
Author Organization [facility] Address [address] [facility] [address] [place] [id number] Care Team Providers Care Sewing Machine Attachment Tester Name Role Phone Val Nicholson Primary Care Provider Gary Doshi Unavailable [phone] Perri Orr Unavailable [phone] Allergies No Known Allergies Results Component Value [...] - 38 plat 252 100 - 400 Medications Medication SIG (Take, Route, Frequency, Duration) [...] prn Inhalation qid and prn 05/10/2024 Active Immunizations Vaccine Route Administration Date Status Comme nts xFluzone (6mos and older)-trivalent IM Intramuscular 02/08/2010 Administered xFluzone (6mos and older)-trivalent IM Intramuscular 01/31/2011 Administered xFlu shot-36 months and older IM Intramuscular 02/08/2008 Administered xFlu shot-36 months and older IM Intramuscular 04/03/2009 Administered Varivax SC Subcutaneous 11/23/2007 Administered Tetanus Dtap-Daptacel (under 7yrs) IM Intramuscular 11/23/2007 Administered MMR SC Subcutaneous 11/23/2007 Administered IPV IM Intramuscular 11/23/2007 Administered H1N1 flu vaccine IM Intramuscular 02/12/2009 Administered Vital Signs Heart Rate 137 /min 05/10/2024 Blood pressure diastolic 80 mm Hg 05/10/2024 Height 80 in 05/10/2024 Blood pressure systolic 132 mm Hg 05/10/2024 Weight 343.2 lbs 05/10/2024 BMI 37.70 kg/m2 05/10/2024 Encounters Encounter Location Date Provider Diagnosis [facility] [address] [place] [phone] 05/10/2024 Perri Orr Bronchitis J4 0 Assessments Encounter Date Diagnosis (ICD Code) Assessment Notes Treatment Notes Treatment Clinical Notes Section Notes 05/10/2024 Bronchitis (ICD-10 - J40) stressed the use of inhaler qid until cough much improved, fluids, rest, supportive measures for fever/symptom relief Plan Of Treatment No Information Insurance Providers Payer Name Payer Address Payer Phone Subscriber Number Group Number Insured Name Patient Relationship to Insured Coverage Start Date Coverage End Date [facility] [address] [place] [address] [id number] Ezequiel Rendon Self - patient is the insured Medical (General) History Surgical History Surgery Date(Month/Year) Ear Tubes 1999
== END 2024-11-18 23:59 ==
LOC: LAB.DROPOF 11-21 10:31
PROVIDERS: PCP Nurse Practitioner; Visit Provider Nurse Practitioner
DX: J06.9 Acute upper respiratory infection, unspecified (principal)
CPT/HCPCS: 87631